=== PATIENT | female | born 1985 | race African-American/Black ===

== ENCOUNTER 2017-03-25 08:20 | Emergency (ER) | payer OTHER ==
[~2017-03-25] VITALS: Ht 170.2 cm; Wt 74.8 kg
[2017-03-25 08:29] VITALS: BP 137/69
--- NOTE | 2017-03-25 09:37 | PHYS DOC ---
Past Medical History Past Medical History: Other Additional Past Medical Histor: Seasonal allergies. Past Surgical History: No Surgical History Additional Information: 06/13 PPD Alcohol Use: Occasionally Drug Use: None Adult General Chief Complaint Chief Complaint: COUGH HPI HPI Patient is a 31 year old female presents to the emergency department stating that she's been coughing congestion for the last few days. She states that she was coughing so much last night that she was unable to sleep. Patient states that she has not had any fever however she has had runny nose and congestion. Anything [id number] to help with any of the symptoms. Review of Systems Review of Systems Constitutional: Denies fever or chills [] Eyes: Denies change in visual acuity, redness, or eye pain [] HENT: nasal congestion denies sore throat [] Respiratory: cough denies shortness of breath [] Cardiovascular: No additional information not addressed in HPI [] GI: Denies abdominal pain, nausea, vomiting, bloody stools or diarrhea [] : Denies dysuria or hematuria [] Musculoskeletal: Denies back pain or joint pain [] Integument: Denies rash or skin lesions [] Neurologic: Denies headache, focal weakness or sensory changes [] Endocrine: Denies polyuria or polydipsia [] Current Medications Current Medications Current Medications Medications (Trade) Dose Ordered Sig/Anil Start Time Stop Time Status Last Admin Dose Admin Albuterol/ Ipratropium (Duoneb) 3 ml 1X ONCE 03/25/17 09:45 03/25/17 09:46 DC 03/25/17 09:44 3 ML Allergies Allergies Allergies Coded Allergies Type Severity Reaction Last Updated Verified No Known Drug Allergies 06/13/13 No Physical Exam Physical Exam Constitutional: Well developed, well nourished, no acute distress, non-toxic appearance. [] HENT: Normocephalic, atraumatic, bilateral external ears normal, oropharynx moist, no oral exudates, nose normal. Bilateral tympanic membranes appear to be normal. Throat with postnasal drip is slightly red. Eyes: PERRLA, EOMI, conjunctiva normal, no discharge. [] Neck: Normal range of motion, no tenderness, supple, no stridor. [] Cardiovascular:Heart rate regular rhythm, no murmur [] Lungs & Thorax: Bilateral breath sounds with wheezes Extremities: No tenderness, no cyanosis, no clubbing, ROM intact, no edema. [] Neurologic: Alert and oriented X 3, normal motor function, normal sensory function, no focal deficits noted. [] Psychologic: Affect normal, judgement normal, mood normal. [] Current Patient Data Vital Signs Vital Signs Date Time Temp Pulse Resp B/P (MAP) Pulse Ox O2 Delivery O2 Flow Rate FiO2 03/25/17 09:45 100 Room Air 03/25/17 08:29 98.3 89 20 98.3 EKG EKG [] Radiology/Procedures Radiology/Procedures [] Course & Med Decision Making Course & Med Decision Making Pertinent Labs and Imaging studies reviewed. (See chart for details) Patient received respiratory treatment with patient stating she is not wheezing. Patient will be discharged home in stable condition. She will be provided with prednisone, augmentin, Tessalon perles, and proair. Patient agrees with discharge instructions, treatment regimen and followup recommendations. Signs and symptoms to return to the emergency department have been provided. All questions and concerns have been provided. Patient is requesting work note for the next 2 days. [] Dragon Disclaimer Dragon Disclaimer This electronic medical record was generated, in whole or in part, using a voice recognition dictation system. Departure Departure Impression: Primary Impression: Bronchitis Disposition: 01 HOME, SELF-CARE Condition: STABLE Referrals: NON,STAFF (PCP) Patient Instructions: Acute Bronchitis, [id number] Additional Instructions: Activity as tolerated Medication as prescribed Tylenol or Ibuprofen for fever, chills or generalized body aches or discomfort Drink plenty of fluids Followup with primary care provider in 3-5 days Return to emergency department as needed for signs and symptoms that become worse. Scripts Benzonatate (TESSALON PERLE) 100 Mg Capsule 1 CAP PO TID, #30 CAP Prov: STACY HOFF APRN 03/25/17 Albuterol Sulfate (PROAIR HFA INHALER) 8.5 Gm Hfa.aer.ad 1 PUFF INH PRN Q6HRS Y for SHORTNESS OF BREATH, #1 INHALER 0 Refills Prov: STACY HOFF APRN 03/25/17 Prednisone (PREDNISONE) 20 Mg Tablet 40 MG PO DAILY for 7 Days, #14 TAB Prov: STACY HOFF APRN 03/25/17 Amoxicillin/Potassium Clav (AUGMENTIN 875-125 TABLET) 1 Each Tablet 1 TAB PO BID, #20 TAB Prov: STACY HOFF APRN 03/25/17 STACY HOFF APRN Mar 25, 2017 09:37
[2017-03-25] MEDS ORDERED: IPRATRPIUM/ALBUTEROL 0.5/2.5MG 3 ML NEBU. NEB ONE (09:45)
[2017-03-25] MEDS ORDERED: PROAIR HFA8.5 GM INH (10:19)
[2017-03-25] MEDS ORDERED: BENZ100C PO (10:19)
[2017-03-25] MEDS ORDERED: PRED20TA PO (10:19)
[2017-03-25] MEDS ORDERED: AMOX1TAB61 PO (10:19)
== END 2017-03-25 10:35 | disposition home or self-care (01) ==
LOC: ER 08:20
DX: J40 Bronchitis, not specified as acute or chronic (principal); F17.200 Nicotine dependence, unspecified, uncomplicated
CPT/HCPCS: 94640; 99283; J7620

== ENCOUNTER 2018-08-20 18:04 | Emergency (ER) | payer OTHER ==
[~2018-08-20] VITALS: Ht 170.2 cm; Wt 76.2 kg
[~2018-08-20 18:04] MED LIST: ALBU2.5V8 INH; AMOX1TAB61 PO; BENZ100C PO; PRED20TA PO
[2018-08-20 18:21] VITALS: BP 137/69
[2018-08-20] MEDS ORDERED: AMOX500C PO (18:30)
[2018-08-20] MEDS ORDERED: LIDOCAINE 2% VISCOUS 15 ML SOLUTION. SWSW ONE (18:30)
[2018-08-20] MEDS ORDERED: LIDO15SO2 MM (18:30)
--- NOTE | 2018-08-20 18:31 | PHYS DOC ---
Past Medical History Past Medical History: Other Additional Past Medical Histor: Seasonal allergies. Past Surgical History: No Surgical History Alcohol Use: Occasionally Drug Use: None Adult General Chief Complaint Chief Complaint: SORE THROAT HPI HPI Patient is a 33-year-old female who presents with complaint of sore throat, headache and congestion for the last few days. Patient states symptoms are getting worse. She is not sure whether or not she is been running a fever. She rates the pain throat at a 10 out of 10. She indicates that she has had a little bit of nasal drainage but states that it has been clear. She states that her children were recently treated for strep throat. She denies any chest pain, shortness of breath or cough. Symptoms are worsened with swallowing. Review of Systems Review of Systems Constitutional: Denies fever or chills [] HENT: Positive congestion and sore throat [] Respiratory: Denies cough or shortness of breath [] Cardiovascular: No additional information not addressed in HPI [] Integument: Denies rash or skin lesions [] Neurologic: Complains of headache without focal weakness or sensory changes [] Allergies Allergies Allergies Coded Allergies Type Severity Reaction Last Updated Verified No Known Drug Allergies 06/13/13 No Physical Exam Physical Exam Constitutional: Well developed, well nourished, no acute distress, non-toxic appearance. [] HENT: Normocephalic, atraumatic, bilateral external ears normal, there is pharyngeal erythema without exudates. [] Eyes: PERRLA, EOMI, conjunctiva normal, no discharge. [] Neck: Normal range of motion, no tenderness, supple, no stridor. [] Cardiovascular: Regular rate and rhythm[] Lungs & Thorax: Bilateral breath sounds clear to auscultation [] EKG EKG [] Radiology/Procedures Radiology/Procedures [] Course & Med Decision Making Course & Med Decision Making Pertinent Labs and Imaging studies reviewed. (See chart for details) [] Dragon Disclaimer Dragon Disclaimer This electronic medical record was generated, in whole or in part, using a voice recognition dictation system. Departure Departure Impression: Primary Impression: Pharyngitis Disposition: 01 HOME, SELF-CARE Condition: STABLE Referrals: UNKNOWN PCP NAME (PCP) Patient Instructions: Viral and Bacterial Pharyngitis Scripts Lidocaine HCl (Lidocaine HCl Viscous) 15 Ml Solution 5 ML MM Q2HR PRN for sore throat, #100 MISC Gargle and spit Prov: CARLOS BOURGEOIS Jr. DO 08/20/18 Amoxicillin (AMOXICILLIN) 500 Mg Capsule 1 CAP PO TID, #30 CAP Prov: CARLOS BOURGEOIS Jr. DO 08/20/18 Problem Qualifiers Primary Impression: Pharyngitis Pharyngitis/tonsillitis etiology: unspecified etiology Qualified Codes: J02.9 - Acute pharyngitis, unspecified CARLOS BOURGEOIS Jr. DO Aug 20, 2018 18:31
== END 2018-08-20 18:44 | disposition home or self-care (01) ==
LOC: ER 18:04
DX: J02.9 Acute pharyngitis, unspecified (principal); R51 Headache; R09.81 Nasal congestion
CPT/HCPCS: 99283

== ENCOUNTER 2018-10-08 14:48 | Emergency (ER) | payer OTHER ==
[~2018-10-08] VITALS: Ht 167.6 cm; Wt 72.6 kg
[~2018-10-08 14:48] MED LIST changes: +AMOX500C PO; +LIDO15SO2 MM
[2018-10-08 15:04] VITALS: BP 130/60
[2018-10-08] MEDS ORDERED: CYCL10TA2 PO (16:40)
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
== END 2018-10-08 16:46 | disposition home or self-care (01) ==
LOC: ER 14:48
DX: R51 Headache (principal); V43.52XA Car driver injured in collision with other type car in traffic accident, initial encounter; Y93.89 Activity, other specified; Y92.410 Unspecified street and highway as the place of occurrence of the external cause; Y99.8 Other external cause status
CPT/HCPCS: 99283